=== PATIENT | male | born 1960 | race Caucasian/White ===

== ENCOUNTER 2020-08-29 09:50 | Outpatient (REF) | payer OTHER, SELFPAY ==
[2020-08-29 10:32] LABS: Hematocrit 45.2 % (42-52); Hemoglobin 14.5 g/dl (14.0-18.0); Mean Corpuscular HGB Conc 32.1 g/dl (31.0-36.0); Mean Corpuscular Hemoglobin 29.4 pg (27.0-33.0); Mean Corpuscular Volume 91.7 fL (80-98); Mean Platelet Volume 9.7 fL (9.4-12.4); Platelet Count 221 X10*3/uL (160-400); Red Blood Count 4.93 X10*6/uL (4.60-5.80); Red Cell Distribution Width 14.8 % (11.0-16.0)
[2020-08-29 10:43] LABS: Estimated Average Glucose 100 mg/dL; Hemoglobin A1c % 5.1 %
[2020-08-29 11:00] LABS: Alanine Aminotransferase 16 U/L (0-40); Albumin Level 4.3 g/dL (3.5-5.0); Alkaline Phosphatase 67 U/L (39-117); Anion Gap 13 (12-20); Aspartate Amino Transferase 14 U/L (5-37); Bilirubin Total 0.4 mg/dL (0.0-1.0); Blood Urea Nitrogen 18 mg/dL (9-16); Calcium 8.8 mg/dL (8.4-10.2); Carbon Dioxide 29 mmol/L (22-29); Chloride 106 mmol/L (96-108); Cholesterol 198 mg/dL; Estimated Glomerular Filt Rate > 60; Glucose Fasting 103 mg/dL (60-99); HDL Cholesterol 63 mg/dL; LDL Cholesterol Calculated 106 mg/dl; Potassium 4.6 mmol/L (3.3-5.1); Sodium 143 mmol/L (135-145); Total Protein 6.6 g/dL (6.5-8.0); Triglycerides 146 mg/dL
[2020-08-29 11:22] LABS: TSH reflex Free T4 2.15 uIU/mL (0.32-4.0)
[2020-08-29 11:59] LABS: Prostate Specific Antigen Scr 0.77 ng/mL (<0.05-4.0)
== END 2020-08-29 09:51 | disposition home or self-care (01) ==
LOC: HO.LAB 09:50
PROVIDERS: PCP Physician Assistant; Visit Provider Physician Assistant
DX: Z12.5 Encounter for screening for malignant neoplasm of prostate (principal); Z13.29 Encounter for screening for other suspected endocrine disorder; Z13.220 Encounter for screening for lipoid disorders; I10 Essential (primary) hypertension
CPT/HCPCS: 36415; 80053; 80061; 83036; 84153; 84443; 85027

== ENCOUNTER 2021-10-10 07:05 | Outpatient (REF) | payer BC, SELFPAY ==
--- NOTE | ~2021-10-10 | XR_ITS ---
EXAMINATION: XR KNEE, LEFT CLINICAL INFORMATION: Pain. COMPARISON: None TECHNIQUE: AP, lateral, tunnel, and sunrise views of the left knee. FINDINGS: Bony alignment and mineralization are normal. The lateral, medial and patellofemoral joint space compartment are well-maintained. No fracture or dislocation is seen. There is a moderately large left knee joint effusion. No foreign body is seen. XR/XR knee LT 3V IMPRESSION: 1. No left knee fracture, dislocation or unusual degenerative change is seen. 2. There is a moderately large left knee joint effusion.
[2021-10-10 08:35] LABS: Hematocrit 43.4 % (42.0-52.0); Hemoglobin 13.7 g/dl (14.0-18.0); Mean Corpuscular HGB Conc 31.6 g/dl (31.0-36.0); Mean Corpuscular Volume 91.8 fL (80.0-98.0); Mean Platelet Volume 9.1 fL (9.4-12.4); Platelet Count 262 X10*3/uL (160-400); Red Blood Count 4.73 X10*6/uL (4.60-5.80); Red Cell Distribution Width 13.7 % (11.0-16.0); White Blood Count 5.8 X10*3/uL (4.8-10.8)
[2021-10-10 08:37] LABS: Estimated Average Glucose 103 mg/dL; Hemoglobin A1c % 5.2 %
[2021-10-10 09:07] LABS: Alanine Aminotransferase 21 U/L (0-40); Albumin Level 4.2 g/dL (3.5-5.0); Alkaline Phosphatase 60 U/L (39-117); Anion Gap 9 (12-20); Aspartate Amino Transferase 13 U/L (5-37); Bilirubin Total 0.8 mg/dL (0.0-1.0); Blood Urea Nitrogen 24 mg/dL (9-16); Calcium 9.3 mg/dL (8.4-10.2); Carbon Dioxide 29 mmol/L (22-29); Chloride 107 mmol/L (96-108); Cholesterol 174 mg/dL; Estimated Glomerular Filt Rate > 60; Glucose Fasting 95 mg/dL (60-99); HDL Cholesterol 47 mg/dL; LDL Cholesterol Calculated 101 mg/dl; Potassium 4.4 mmol/L (3.3-5.1); Sodium 141 mmol/L (135-145); Total Protein 6.5 g/dL (6.5-8.0); Triglycerides 132 mg/dL
[2021-10-10 09:29] LABS: TSH reflex Free T4 1.44 uIU/mL (0.32-4.0)
[2021-10-12 09:17] LABS: Lyme Abs Screen <0.90 index
== END 2021-10-10 07:06 | disposition home or self-care (01) ==
LOC: HO.XRAY 07:05
PROVIDERS: PCP Physician Assistant; Visit Provider Physician Assistant
DX: Z13.29 Encounter for screening for other suspected endocrine disorder (principal); Z13.220 Encounter for screening for lipoid disorders; M25.562 Pain in left knee; T14.8XXA Other injury of unspecified body region, initial encounter; W57.XXXA Bitten or stung by nonvenomous insect and other nonvenomous arthropods, initial encounter
CPT/HCPCS: 36415; 73562; 80053; 80061; 83036; 84443; 85027; 86617; 86618

== ENCOUNTER → 2021-10-12 08:12 | Outpatient (BNVA) | payer BC, SELFPAY | PROVIDERS: PCP Physician Assistant; Visit Provider Orthopaedic Surgery | DX: S70.362A Insect bite (nonvenomous), left thigh, initial encounter (principal); W57.XXXA Bitten or stung by nonvenomous insect and other nonvenomous arthropods, initial encounter; M25.462 Effusion, left knee ==

== ENCOUNTER 2022-05-02 15:44 | Outpatient (REF) | payer OTHER, SELFPAY ==
--- NOTE | ~2022-05-02 | XR_ITS ---
EXAMINATION: XR CERVICAL SPINE CLINICAL INFORMATION: M54.2 - Cervicalgia. Additional Information: Patient states work injury 2-3 weeks ago. COMPARISON: 07/14/2007. TECHNIQUE: 4 views of the cervical spine were obtained. FINDINGS: Vertebral body heights are normal. 2 mm of retrolisthesis of C3 on C4 is new as compared to prior and likely due to the degenerative disc disease at this level. There is aiuq-tt-vpxjzyie multilevel degenerative disc disease in the cervical spine is characterized by loss of intervertebral disc height, endplate osteophytes, and uncovertebral osteophytes. No additional spondylolisthesis. Odontoid is intact. Prevertebral soft tissues are normal. Lung apices appear clear. XR/XR cervical spine 3V IMPRESSION: 1. Dqwu-da-salhrlae multilevel degenerative disc disease in the cervical spine. 2. The 2 mm of retrolisthesis of C3 on C4 is new as compared to 2008 and likely related to degenerative disc disease.
--- NOTE | ~2022-05-02 | XR_ITS ---
EXAMINATION: XR KNEE, RIGHT CLINICAL INFORMATION: M25.561 - Pain in right knee Additional Information: PT states work injury 2-3 weeks ago COMPARISON: None TECHNIQUE: AP, lateral, tunnel, and sunrise views of the right knee. FINDINGS: Mild medial and patellofemoral compartment joint space narrowing with small marginal osteophytes. Cortical irregularity is present in the central trochlea. No fractures. No joint effusion. These bony spurring is present at the quadriceps tendon insertion on the patella. Mild soft tissue swelling. XR/XR knee RT 3V IMPRESSION: Mild medial and patellofemoral compartment osteoarthritis. No acute osseous findings.
== END 2022-05-02 15:45 | disposition home or self-care (01) ==
LOC: HO.XRAY 15:44
PROVIDERS: PCP Physician Assistant; Visit Provider Physician Assistant
DX: M25.561 Pain in right knee (principal); M54.2 Cervicalgia
CPT/HCPCS: 72040; 73562

== ENCOUNTER → 2022-06-12 07:46 | Outpatient (REF) | payer BC, SELFPAY ==
--- NOTE | 2022-06-12 07:49 | CA_ITS ---
Acquisition Time: 2022-06-12 08:10:12 Total Exercise Time: 00:06:34 Test Indications: CHEST PAIN Medications: NONE Protocol: ARLEEN Max HR: 136 BPM 86% of Pred: 158 BPM Max BP: 214/052 mmHG Max Work Load: 7.8 METS Exercise stress test with exercise 6 min 34 sec of Arleen protocol, achieving 86% MPHR, 7.8 METs with mild to mod sob, no chest discomfort, with PACs and isolated PVCs, with hypertensive response to exercise, without EKG changes meeting criteria for ischemia. In recovery BP returned to baseline. Test reviewed with Dr Barragan Referred By: Jama Pemberton Overread By: ALBERTINA ALARCON
== END ==
LOC: HO.CARD 07:46
PROVIDERS: Visit Provider Physician Assistant
DX: R07.9 Chest pain, unspecified (principal)
CPT/HCPCS: 93017

== ENCOUNTER 2022-10-24 06:48 | Outpatient (REF) | payer BC, SELFPAY ==
[2022-10-24 07:53] LABS: Hematocrit 43.3 % (42.0-52.0); Hemoglobin 13.8 g/dl (14.0-18.0); Mean Corpuscular HGB Conc 31.9 g/dl (31.0-36.0); Mean Corpuscular Hemoglobin 29.5 pg (27.0-33.0); Mean Corpuscular Volume 92.5 fL (80.0-98.0); Mean Platelet Volume 9.9 fL (9.4-12.4); Platelet Count 214 X10*3/uL (160-400); Red Blood Count 4.68 X10*6/uL (4.60-5.80); Red Cell Distribution Width 14.2 % (11.0-16.0); White Blood Count 5.7 X10*3/uL (4.8-10.8)
[2022-10-24 08:28] LABS: Alanine Aminotransferase 19 U/L (0-40); Albumin Level 4.2 g/dL (3.5-5.0); Alkaline Phosphatase 68 U/L (39-117); Anion Gap 12 (12-20); Aspartate Amino Transferase 13 U/L (5-37); Bilirubin Total 0.6 mg/dL (0.0-1.0); Blood Urea Nitrogen 19 mg/dL (9-16); Calcium 9.1 mg/dL (8.4-10.2); Carbon Dioxide 29 mmol/L (22-29); Chloride 106 mmol/L (96-108); Cholesterol 169 mg/dL; Estimated Glomerular Filt Rate > 60; Glucose Fasting 90 mg/dL (60-99); HDL Cholesterol 56 mg/dL; LDL Cholesterol Calculated 97 mg/dl; Potassium 4.5 mmol/L (3.3-5.1); Sodium 142 mmol/L (135-145); Total Protein 6.4 g/dL (6.5-8.0); Triglycerides 81 mg/dL
[2022-10-24 08:49] LABS: Prostate Specific Antigen Scr 0.59 ng/mL (<0.05-4.0); TSH reflex Free T4 2.42 uIU/mL (0.32-4.0)
== END 2022-10-24 06:49 | disposition home or self-care (01) ==
LOC: HO.LAB 06:48
PROVIDERS: PCP Physician Assistant; Visit Provider Physician Assistant
DX: Z12.5 Encounter for screening for malignant neoplasm of prostate (principal); Z13.220 Encounter for screening for lipoid disorders; Z13.29 Encounter for screening for other suspected endocrine disorder; E66.9 Obesity, unspecified
CPT/HCPCS: 36415; 80053; 80061; 84153; 84443; 85027

== ENCOUNTER 2023-10-29 08:53 | Outpatient (AMB) | payer BC, SELFPAY ==
[2023-10-29 09:13] VITALS: BP 116/60; PULSE 60; O2SAT 97; BMI 33.6
--- NOTE | 2023-10-29 09:13 | A.OFFPC_ITS ---
Vital Signs 10/29/23 09:13 Height 5 ft 9 in Weight 227 lb 8 oz BMI 33.6 BP 116/60 Blood Pressure Location Lt brachial Position Sitting Pulse 60 Pulse Source Pulse Oximeter Pulse Oximetry (%) 97 Oxygen Delivery Method Room Air Intake Visit Reasons: Annual Exam Intake Note: Patient is here today for a physical. [place] Required: No Accompanied by: Self / Same As Patient Allergies No Known Allergies Allergy (Verified 10/29/23 09:31) Medication List - Last Reconciled 10/29/23 by Jama Pemberton PA-C doxycycline monohydrate 100 mg PO BID 5 days imiquimod 5% 1 appl topical 2XW 12 weeks Tobacco use date assessed: 10/29/23 Dental Screening Dental Screen Date: 10/29/23 Did you have a dental visit in the last 12 months?: Yes Did you have a dental problem in the last 6 months where you did not have access to dental care?: No Was dental information given to patient?: Patient has dentist HPI Annual Exam HPI Details ?Patient is a 63-year-old male here today for routine annual physical.? Patient has a past medical history significant for obesity, knee osteoarthritis,? lumbar disc disease. .. ? Concerns-->?continues to have concerns about certain skin lesions on his body. He is interested in seeing a log driver. Will call to make an appointment with Dermatology. .. 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 . ?obesity:? does understand his BMI is over 30? and has found it difficult to lose weight. ? Colonoscopy: Dr hernandes 2018 - hyperplastic polyp - ? Repeat colonoscopy 10 years ?vaccines:? up-to-date with tetanus vaccine,? declines COVID vaccine? and flu vaccine. ? Laboratory Tests 10/10/21 10/24/22 10/24/22 08:10 06:56 06:56 RBC 4.68 Hgb 13.8 L Creatinine 0.91 Cholesterol 169 LDL Cholesterol, C alc 101 97 PSA Screen 0.59 TSH 2.42 COUNT INCLUDES THE [facility] Medical History (Updated 10/30/23 @ 07:42 by Jama Pemberton PA-C) Tick bite Cervical spondylosis with myelopathy Surgical History History of lumbar discectomy History of appendectomy Family History Father Stomach cancer Mother No problems noted. Brother No problems noted. Sister No problems noted. Social History Housing: House Alcohol intake: current Alcohol intake frequency: a few times a month Alcohol type: beer Patient Tobacco Use Status: Never used Tobacco e-Cigarette/Vaping Use: Never Used Substance Use Type: Marijuana service: No Current occupational status: employed Current occupation: ELECTRICAL Cognitive needs: No Hearing needs: No Vision needs: Yes (Pt has not seen a eye doctor in a long time.) Questionnaire PHQ-9 Over the last 2 weeks, how often have you been bothered by any of the following problems? 1. Little interest or pleasure in doing things: not at all 2. Feeling down, depressed, or hopeless: not at all 3. Trouble falling or staying asleep, or sleeping too much: not at all 4. Feeling tired or having little energy: not at all 5. Poor appetite or overeating: not at all 6. Feeling bad about yourself - or that you are a failure or have let yourself or your family down: not at all 7. Trouble concentrating on things, such as reading the newspaper or watching television: not at all 8. Moving or speaking so slowly that other people could have noticed. Or the opposite - being so fidgety or restless that you have been moving around a lot more than usual: not at all 9. Thoughts that you would be better off or of hurting yourself in some way: not at all Total score: 0 Depression Screening Interpretation: Negative Depression Screening Done: Yes [id number] - PHQ-9 Billing: Yes Source: Developed by Drs. Link Lazar, Kennedi Ferrari, Lauro Lee and colleagues, with an educational cassandra from [employer]. Thrive Questionnaire Date Thrive assessed: 10/29/23 I am a: Patient What is your living situation today?: I have a steady place to live Within the past 12 months, did the food you bought not last and you didn't have the money to get more?: Never true Within the past 12 months, did you worry whether your food would run out before you got money to buy more?: Never true Do you have trouble paying for medicines?: No Do you have trouble getting transportation to medical appointments?: No Do you have trouble paying your heating and electricity bill?: No Do you have trouble taking care of your child, family member or friend?: No Do you have trouble with day-to-day activities such as bathing, preparing meals, shopping, managing finances, etc.?: No Are you currently unemployed and looking for a job?: No Are you interested in more education?: No Please select the resources that you would like help with: None Currently or been in a relationship where the following occur: no concerns reported THRIVE Score: 0 AUDIT C Alcohol Use Questionnaire (AUDIT-C) 1. How often do you have a drink containing alcohol?: Never 3. How often do you have six or more drinks on one occasion?: Never Total Score: 0 SIS-7 AMB Questionnaire SIS-7 Date SIS - 7 assessed: 10/29/23 Feeling nervous, anxious, or on edge: 0 = Not at all Not being able to stop or control worryin = Not at all Worrying too much about different things: 0 = Not at all Trouble relaxin = Not at all Being so restless that it is hard to sit still: 0 = Not at all Becoming easily annoyed or irritable: 0 = Not at all Feeling afraid as if something awful might happen: 0 = Not at all Total SIS-7 score (0-4 normal; 5-9 mild; 10-14 moderate; 15-21 severe): 0 Source: Developed by Drs. Link Lazar, Kennedi Ferrari, Lauro Lee and colleagues, with an educational cassandra from [employer]. SIS-7 Assessment Billing SIS-7 Assessment Tool: SIS-7 Assessment 75334 Review of Systems Const Denies body aches, Denies chills, Denies excessive sweating, Denies fatigue, Denies fever(s) and Denies headache(s) Eyes Denies blurry vision ENT Denies dysphagia, Denies vertigo, Denies dizziness, Denies headache(s), Denies hearing loss and Denies tinnitus Card Denies chest pain, Denies chest pain with activity, Denies syncope, Denies irregular heart rhythm and Denies dyspnea Resp Denies chest congestion, Denies cough, Denies hemoptysis, Denies dyspnea and Denies wheezing GI Denies abdominal pain, Denies melena, Denies hematochezia, Denies coffee ground emesis, Denies dysphagia, Denies diarrhea, Denies nausea and Denies vomiting Denies difficulty urinating, Denies dysuria, Denies urinary frequency, Denies urinary hesitancy and Denies urinary urgency Musc Denies arthralgias, Denies limited range of motion, Denies muscle cramps and Denies muscle weakness Skin/Breast Denies rash and Denies skin ulcer Neuro Denies Abnormal speech present, Denies confusion, Denies vertigo, Denies dizziness, Denies syncope, Denies headache(s), Denies memory loss and Denies seizure-like activity Psych Denies anxiety, Denies confusion, Denies depression, Denies memory loss, Denies panic attacks and Denies paranoia Endo Denies excessive sweating, Denies fatigue, Denies flushing, Denies polydipsia and Denies polyuria Aller/Immun Denies wheezing Physical exam (Primary Care) Vital Signs: Last Vital Signs Pulse 60 10/29/23 09:13 BP 116/60 10/29/23 09:13 Pulse Ox 97 10/29/23 09:13 Oxygen Delivery Method Room Air 10/29/23 09:13 BMI result Body Mass Index 33.6 BMI Assessment/Plan discussion: High BMI High, discussed plan: lifestyle, weight reduction, dietary and physical activity Tobacco/Smoking Status: Tobacco use Status Tobacco use date assessed 10/29/23 10/29/23 09:23 Patient Tobacco Use Status Never used Tobacco 10/29/23 09:18 Tobacco use type 10/10/21 07:05 e-Cigarette/Vaping Use Never Used 10/29/23 09:18 PHQ-9: PHQ-9 Score PHQ-9: Total score 0 10/29/23 09:35 Depression Screening Interpretation: Negative Thrive Assessment: Date of Thrive Assessment Date Thrive assessed 10/29/23 10/29/23 09:18 Currently or been in a relationship where the following occur: no concerns reported Const General: cooperative, comfortable, no acute distress, alert and awake; No confusion Orientation/consciousness: oriented to person, oriented to place, patient oriented x3 and No confusion HENMT Head: Yes normocephalic Ears: external ears normal and TM's normal bilaterally Face and sinus: No sinus tenderness Mouth: Normal oral and palatal mucosa present and tongue normal Teeth and gingiva: dentition normal and gingiva normal Throat: Yes posterior oropharynx normal, Yes tonsils normal and Yes uvula midline Eyes Conjunctivae: conjunctivae normal Sclerae: sclerae normal Pupils: Equal, round and reactive pupils present EOM: EOMs intact bilaterally Direct Ophthalmoscopy: No no photophobia Neck Neck: Yes no lymphadenopathy, No tender and Yes no JVD Thyroid: Thyroid normal Carotids: no bruits Chest Chest palpation & inspection: no tenderness Resp Effort & Inspection: normal respiratory effort, no audible wheezes, not labored and no stridor Auscultation: no crackles, no rales, no rhonchi and no wheezes Cardio Jugular venous distension: no JVD Rate: regular rate, not bradycardic and not tachycardic Rhythm: regular rhythm Bruits: no carotid bruits Peripheral pulses: Peripheral pulses 2+ throughout GI Inspection: Yes normal to inspection, No abdominal wall ecchymosis and No visible herniation Palpation (GI): Soft to palpation, nontender, no guarding, not rigid and No hepatosplenomegaly present Auscultation: normoactive bowel sounds General: Yes no CVA tenderness Back/Spine/Pelvis Back: no CVA tenderness and No back tenderness Cervical Spine: cervical ROM normal Thoracic/Lumbar Spine: thoracic and lumbar spine normal to inspection, straight leg raise negative bilaterally, No thoraco-lumbar ROM limited and No lumbar spinal tenderness Skin Lesions: no lesions Rashes: no rashes Wounds: no wounds Neuro General: oriented to person, oriented to place, patient oriented x3, CN's II-XI intact bilaterally and No confusion Cranial nerves: Yes Equal, round and reactive pupils present and Yes Normal accommodation reflex present Cognition (Neuro): normal cognition Speech: No Abnormal speech present Gait exam (Neuro): Normal gait present Motor exam (neuro): 5/5 motor strength present throughout Extrem Right upper extremity: full ROM; no cyanosis Left upper extremity: full ROM; no cyanosis Right lower extremity: no edema Left lower extremity: no edema Psych Appearance: grossly normal Mental Status: mental status grossly normal Affect: normal affect Attitude: cooperative Thought process: Normal thought process present Assessment and Plan Assessment & Plan (1) Annual physical exam: Code(s): Z00.00 - Encounter for general adult medical examination without abnormal findings (2) Obese: Code(s): E66.9 - Obesity, unspecified Qualifiers: Body mass index: BMI 32.0-32.9 Obesity classification: adult class 1 (BMI 30 - 34.9) Obesity type: due to excess calories Serious obesity comorbidity presence: without serious comorbidity Qualified Code(s): E66.09 - Other obesity due to excess calories; Z68.32 - Body mass index [BMI] 32.0-32.9, adult Plan: Patient does understand his BMI is over 30 and will be working on being more ph ysically active and adapting to better eating habits to reduce his weight. (3) Osteoarthritis of right knee: Code(s): M17.11 - Unilateral primary osteoarthritis, right knee Qualifiers: Osteoarthritis type: primary Qualified Code(s): M17.11 - Unilateral primary osteoarthritis, right knee Plan: Continues to have intermittent pains in his bilateral knees, most recent x-rays does show osteoarthritis. He does take Advil from time to time (4) Skin lesion of left leg: Code(s): L98.9 - Disorder of the skin and subcutaneous tissue, unspecified Plan: Patient's skin lesion over his left proximal lower extremity. He would like Dermatology evaluation Orders: Orders Prostate Specific Antigen Scr 10/29/23 Z12.5 - Encounter for screening for malignant neoplasm of prostate, Z13.1 - Encounter for screening for diabetes mellitus Comprehensive [place]. Panel Fast 10/29/23 Z13.1 - Encounter for screening for diabetes mellitus Patient Instructions: Goal: Continue working on weight loss. He plans on losing 15 lb over the next 6 months. Barriers: Adherence to healthy eating habits and physical activity Coding Level of Care Code Est Pt Prev Care 40-64y([id number]) Diagnoses Annual physical exam Z00.00 Class 1 obesity due to excess calories without serious comorbidity with body mass index (BMI) of 32.0 to 32.9 in adult E66.09; Z68.32 Body mass index: BMI 32.0-32.9 Obesity classification: adult class 1 (BMI 30 - 34.9) Obesity type: due to excess calories Serious obesity comorbidity presence: without serious comorbidity Primary osteoarthritis of right knee M17.11 Osteoarthritis type: primary Skin lesion of left leg L98.9 Additional Codes SIS-7 Assessment Billing - SIS-7 Assessment Tool: SIS-7 Assessment [id number] ([id number])
== END 2023-10-29 10:02 | disposition home or self-care (01) ==
PROVIDERS: Visit Provider Physician Assistant
DX: Z00.00 Encounter for general adult medical examination without abnormal findings (principal); E66.09 Other obesity due to excess calories; Z68.32 Body mass index [BMI] 32.0-32.9, adult; M17.11 Unilateral primary osteoarthritis, right knee; L98.9 Disorder of the skin and subcutaneous tissue, unspecified
CPT/HCPCS: 99396

== ENCOUNTER 2024-10-20 10:06 | Outpatient (REF) | payer BC, SELFPAY ==
[2024-10-20 11:17] LABS: Alanine Aminotransferase 18 U/L (0-40); Albumin Level 4.1 g/dL (3.5-5.0); Alkaline Phosphatase 67 U/L (39-117); Anion Gap 10 (12-20); Aspartate Amino Transferase 17 U/L (5-37); Bilirubin Total 0.7 mg/dL (0.0-1.0); Blood Urea Nitrogen 17 mg/dL (9-16); Calcium 8.9 mg/dL (8.4-10.2); Carbon Dioxide 30 mmol/L (22-29); Chloride 106 mmol/L (96-108); Estimated Glomerular Filt Rate > 60; Glucose Fasting 87 mg/dL (60-99); Potassium 4.3 mmol/L (3.3-5.1); Sodium 142 mmol/L (135-145); Total Protein 6.6 g/dL (6.5-8.0)
[2024-10-20 12:00] LABS: Prostate Specific Antigen Scr 0.81 ng/mL (<0.05-4.0)
== END 2024-10-20 10:07 | disposition home or self-care (01) ==
LOC: HO.LAB 10:06
PROVIDERS: PCP Physician Assistant; Visit Provider Physician Assistant
DX: Z12.5 Encounter for screening for malignant neoplasm of prostate (principal); Z13.1 Encounter for screening for diabetes mellitus
CPT/HCPCS: 36415; 80053; 84153

== ENCOUNTER 2024-10-29 10:11 | Outpatient (AMB) | payer BC, SELFPAY ==
--- NOTE | 2024-10-29 10:48 | A.OFFPC_ITS ---
Vital Signs 10/29/24 11:04 Height 5 ft 9 in Weight 225 lb 8 oz BMI 33.3 BP 130/70 Blood Pressure Location Lt brachial Position Sitting Pulse 74 Pulse Source Pulse Oximeter Temp 97.1 F Temp Source Temporal Artery Scan Pulse Oximetry (%) 96 Oxygen Delivery Method Room Air Intake Visit Reasons: annual exam Dairy Associate Required: No Accompanied by: Self / Same As Patient Allergies No Known Allergies Allergy (Verified 10/29/24 11:11) Medication List - Last Reconciled 10/29/24 by Jama Pemberton PA-C imiquimod 5% 1 appl topical 2XW 12 weeks Tobacco use date assessed: 10/29/24 Fall risk assessment: 1 Fall in past year Last assessed Fall Risk: 10/29/24 Dental Screening Dental Screen Date: 10/29/24 Did you have a dental visit in the last 12 months?: Yes Did you have a dental problem in the last 6 months where you did not have access to dental care?: No Was dental information given to patient?: Patient has dentist HPI annual exam HPI Details ?Patient is a 64 year-old male here today for routine annual physical.? Patient has a past medical history significant for obesity, knee o steoarthritis,? lumbar disc disease. .. ? Concerns--> having right shoulder and bicep pain over the last 3 months , may have picked up a heavy object at the time and feels he may have injured his rig ht shoulder and biceps. Of note does have cervical disc disease to which causes bilateral shoulder and trapezius pain. He is applying for a crossbow license as he does not have the upper body strength secondary to his cervical spine disease. He also reports he continues to have bilateral lower extremity cramping and knee pain, he is concerned about having Lyme as he has found ticks on him in the past. .. 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 . ?obesity:? does understand his BMI is over 30? and has found it difficult to lose weight. ? Colonoscopy: Dr hernandes 2018 - hyperplastic polyp - ? Repeat colonoscopy 10 years ?vaccines:? up-to-date with tetanus vaccine,? declines COVID vaccine? and flu vaccine. ?concsidering shingrex Laboratory Tests 10/10/21 10/24/22 10/24/22 08:10 06:56 06:56 RBC 4.68 Hgb 13.8 L Creatinine 0.91 Cholesterol 169 LDL Cholesterol, C alc 101 97 PSA Screen 0.59 TSH 2.42 [facility] Medical History Tick bite Cervical spondylosis with myelopathy Surgical History History of lumbar discectomy History of appendectomy Family History (Updated 10/29/24 @ 11:28 by Jama Pemberton PA-C) Father Stomach cancer Mother No problems noted. Brother Heart attack Sister No problems noted. Social History Housing: House Alcohol intake: current Alcohol intake frequency: a few times a month Alcohol type: beer Patient Tobacco Use Status: Never used Tobacco e-Cigarette/Vaping Use: Never Used Substance Use Type: Marijuana service: No Current occupational status: employed Current occupation: ELECTRICAL Cognitive needs: No Hearing needs: No Vision needs: Yes (Pt has not seen a eye doctor in a long time.) Questionnaire PHQ-9 Over the last 2 weeks, how often have you been bothered by any of the following problems? 1. Little interest or pleasure in doing things: not at all 2. Feeling down, depressed, or hopeless: several days 3. Trouble falling or staying asleep, or sleeping too much: several days 4. Feeling tired or having little energy: several days 5. Poor appetite or overeating: not at all 6. Feeling bad about yourself - or that you are a failure or have let yourself or your family down: several days 7. Trouble concentrating on things, such as reading the newspaper or watching television: not at all 8. Moving or speaking so slowly that other people could have noticed. Or the opposite - being so fidgety or restless that you have been moving around a lot more than usual: not at all 9. Thoughts that you would be better off or of hurting yourself in some way: not at all Total score: 4 Depression Screening Interpretation: Positive Depression Screening Follow-up: Existing condition Depression Screening Done: Yes 93477 - PHQ-9 Billing: Yes Source: Developed by Drs. Link Lazar, Kennedi Ferrari, Lauro Lee and colleagues, with an educational cassandra from [employer]. Thrive Questionnaire Date Thrive assessed: 10/29/24 I am a: Patient What is your living situation today?: I have a steady place to live Within the past 12 months, did the food you bought not last and you didn't have the money to get more?: Never true Within the past 12 months, did you worry whether your food would run out before you got money to buy more?: Never true Do you have trouble paying for medicines?: Yes Do you have trouble getting transportation to medical appointments?: No Do you have trouble paying your heating and electricity bill?: Yes Do you have trouble taking care of your child, family member or friend?: No Do you have trouble with day-to-day activities such as bathing, preparing meals, shopping, managing finances, etc.?: No Are you currently unemployed and looking for a job?: No Are you interested in more education?: Yes Please select the resources that you would like help with: Paying for medicine, Utilities and None Currently or been in a relationship where the following occur: No concerns reported THRIVE Score: 1 AUDIT C Alcohol Use Questionnaire (AUDIT-C) 1. How often do you have a drink containing alcohol?: 2-3 times a week 2. How many drinks containing alcohol do you have on a typical day when you are drinking?: 1 or 2 3. How often do you have six or more drinks on one occasion?: Monthly Total Score: 5 SIS-7 AMB Questionnaire SIS-7 Date SIS - 7 assessed: 10/29/24 Feeling nervous, anxious, or on edge: 1 = Several days Not being able to stop or control worryin = Several days Worrying too much about different things: 1 = Several days Trouble relaxin = More than half the days Being so restless that it is hard to sit still: 0 = Not at all Becoming easily annoyed or irritable: 1 = Several days Feeling afraid as if something awful might happen: 1 = Several days Total SIS-7 score (0-4 normal; 5-9 mild; 10-14 moderate; 15-21 severe): 7 Source: Developed by Kennedi Washburn, Lauro Lee and colleagues, with an educational cassandra from [employer]. SIS-7 Assessment Billing SIS-7 Assessment Tool: SIS-7 Assessment 37556 Review of Systems Const Denies body aches, Denies chills, Denies excessive sweating, Denies fatigue, De nies fever(s) and Denies headache(s) Eyes Denies blurry vision ENT Denies dysphagia, Denies vertigo, Denies dizziness, Denies headache(s), Denies hearing loss and Denies tinnitus Card Denies chest pain, Denies chest pain with activity, Denies syncope, Denies irregular heart rhythm and Denies dyspnea Resp Denies chest congestion, Denies cough, Denies hemoptysis, Denies dyspnea and Denies wheezing GI Denies abdominal pain, Denies melena, Denies hematochezia, Denies coffee ground emesis, Denies dysphagia, Denies diarrhea, Denies nausea and Denies vomiting Denies difficulty urinating, Denies dysuria, Denies urinary frequency, Denies urinary hesitancy and Denies urinary urgency Musc Denies arthralgias, Denies limited range of motion, Denies muscle cramps and Denies muscle weakness Skin/Breast Denies rash and Denies skin ulcer Neuro Denies Abnormal speech present, Denies confusion, Denies vertigo, Denies dizziness, Denies syncope, Denies headache(s), Denies memory loss and Denies seizure-like activity Psych Denies anxiety, Denies confusion, Denies depression, Denies memory loss, Denies panic attacks and Denies paranoia Endo Denies excessive sweating, Denies fatigue, Denies flushing, Denies polydipsia and Denies polyuria Aller/Immun Denies wheezing Physical exam (Primary Care) Vital Signs: Last Vital Signs Temp 97.1 F 10/29/24 11:04 Pulse 74 10/29/24 11:04 BP 130/70 10/29/24 11:04 Pulse Ox 96 10/29/24 11:04 Oxygen Delivery Method Room Air 10/29/24 11:04 BMI result Body Mass Index 33.3 Tobacco/Smoking Status: Tobacco use Status Tobacco use date assessed 10/29/24 10/29/24 10:54 Patient Tobacco Use Status Never used Tobacco 10/29/24 10:49 Tobacco use type 10/10/21 07:05 e-Cigarette/Vaping Use Never Used 10/29/24 10:49 PHQ-9: PHQ-9 Score PHQ-9: Total score 4 10/29/24 11:31 Depression Screening Interpretation: Positive Depression Screening Follow-up: Existing condition Thrive Assessment: Date of Thrive Assessment Date Thrive assessed 10/29/24 10/29/24 10:49 Currently or been in a relationship where the following occur: No concerns reported Const General: cooperative, comfortable, no acute distress, alert and awake; No confusion Orientation/consciousness: oriented to person, oriented to place, patient oriented x3 and No confusion HENMT Head: Yes normocephalic Ears: external ears normal and TM's normal bilaterally Face and sinus: No sinus tenderness Mouth: Normal oral and palatal mucosa present and tongue normal Teeth and gingiva: dentition normal and gingiva normal Throat: Yes posterior oropharynx normal, Yes tonsils normal and Yes uvula midline Eyes Conjunctivae: conjunctivae normal Sclerae: sclerae normal Pupils: Equal, round and reactive pupils present EOM: EOMs intact bilaterally Direct Ophthalmoscopy: No no photophobia Neck Neck: Yes no lymphadenopathy, No tender and Yes no JVD Thyroid: Thyroid normal Carotids: no bruits Chest Chest palpation & inspection: no tenderness Resp Effort & Inspection: normal respiratory effort, no audible wheezes, not labored and no stridor Auscultation: no crackles, no rales, no rhonchi and no wheezes Cardio Jugular venous distension: no JVD Rate: regular rate, not bradycardic and not tachycardic Rhythm: regular rhythm Bruits: no carotid bruits Peripheral pulses: Peripheral pulses 2+ throughout GI Inspection: Yes normal to inspection, No abdominal wall ecchymosis and No visible herniation Palpation (GI): Soft to palpation, nontender, no guarding, not rigid and No hepatosplenomegaly present Auscultation: normoactive bowel sounds General: Yes no CVA tenderness Back/Spine/Pelvis Back: no CVA tenderness and No back tenderness Cervical Spine: cervical ROM normal Thoracic/Lumbar Spine: thoracic and lumbar spine normal to inspection, straight leg raise negative bilaterally, No thoraco-lumbar ROM limited and No lumbar spinal tenderness Skin Lesions: no lesions Rashes: no rashes Wounds: no wounds Neuro General: oriented to person, oriented to place, patient oriented x3, CN's II-XI intact bilaterally and No confusion Cranial nerves: Yes Equal, round and reactive pupils present and Yes Normal accommodation reflex present Cognition (Neuro): normal cognition Speech: No Abnormal speech present Gait exam (Neuro): Normal gait present Motor exam (neuro): 5/5 motor strength present throughout Extrem Other: RIGHT ShOUlDeR: DECREASED RANGE OF MOTION IN THE RIGHT SHOULDER, NOTED TENDERNESS TO PALPATION OVER THE TRAPEZIUS AND THE ANTERIOR ASPECT OF THE BICEP. Right upper extremity: ROM limited and no cyanosis Left upper extremity: full ROM; no cyanosis Right lower extremity: no edema Left lower extremity: no edema Psych Appearance: grossly normal Mental Status: mental status grossly normal Affect: normal affect Attitude: cooperative Thought process: Normal thought process present Coding Level of Care Code Est Pt Prev Care 40-64y(19984) Diagnoses Annual physical exam Z00.00 Osteoarthritis of right shoulder due to rotator cuff injury M19.111; S46.001S Chronic fatigue R53.82 Polyarthralgia M25.50 Additional Codes SIS-7 Assessment Billing - SIS-7 Assessment Tool: SIS-7 Assessment 32142 ([id number]) PHQ-9 - 64901 - PHQ-9 Billing: Yes ([id number]) Assessment & Plan Assessment & Plan (1) Annual physical exam: Code(s): Z00.00 - Encounter for general adult medical examination without abnormal find ings Category: Medical Plan: As per HPI (2) Osteoarthritis of right shoulder due to rotator cuff injury: Code(s): M19.111 - Post-traumatic osteoarthritis, right shoulder; S46.001S - Unspecified injury of muscle(s) and tendon(s) of the rotator cuff of right shoulder, sequela Category: Medical Plan: as per HPI patient having chronic right shoulder pain and decreased range of motion. He does report a traumatic injury during lifting a large optic discs at work and may have injured his right shoulder. Will send for MRI of right shoulder to evaluate for rotator cuff tear. (3) Chronic fatigue: Code(s): R53.82 - Chronic fatigue, unspecified Category: Medical Plan: Reports chronic fatigue and polyarthralgias in his interested in getting Lyme and tick-borne disease testing. (4) Polyarthralgia: Code(s): M25.50 - Pain in unspecified joint Category: Medical Plan: as above Orders: Orders MR shoulder RT wo con Today M19.111 - Post-traumatic osteoarthritis, right shoulder, S46.001S - Unspecified injury of muscle(s) and tendon(s) of the rotator cuff of right shoulder, sequela KATARINA Reflex Titer and Pattern Today M25.50 - Pain in unspecified joint Rheumatoid Factor Today M25.50 - Pain in unspecified joint Tick-borne Disease Molecular Today R53.82 - Chronic fatigue, unspecified Lyme IgG/IgM w/reflex to WB Today R53.82 - Chronic fatigue, unspecified Cyclic Citrullinated Peptide Today M25.50 - Pain in unspecified joint Referrals Dermatology Referral L98.9 - Disorder of the skin and subcutaneous tissue, unspecified
[2024-10-29 11:04] VITALS: BP 130/70; PULSE 74; TEMP 36.2; O2SAT 96; BMI 33.3
== END 2024-10-29 11:42 | disposition home or self-care (01) ==
LOC: HO.HMCH 10:12
PROVIDERS: PCP Physician Assistant; Visit Provider Physician Assistant
DX: Z00.00 Encounter for general adult medical examination without abnormal findings (principal); M19.111 Post-traumatic osteoarthritis, right shoulder; S46.001S Unspecified injury of muscle(s) and tendon(s) of the rotator cuff of right shoulder, sequela; R53.82 Chronic fatigue, unspecified; M25.50 Pain in unspecified joint

== ENCOUNTER 2024-10-29 10:11 | Outpatient (REF) | payer BC, SELFPAY ==
[2024-10-29 13:53] LABS: Rheumatoid Factor < 13.0 IU/mL (<15.0)
[2024-10-30 06:48] LABS: Lyme Abs Screen <0.90 index
[2024-10-30 12:18] LABS: Cyclic Citrullinated Peptide <16 UNITS
[2024-10-30 20:47] LABS: A. Phagocytphilium DNA,RT-PCR NOT DETECTED (NOT DETECTED); Babesia Microti DNA, RT-PCR NOT DETECTED (NOT DETECTED); Borrelia Miyamotoi,DNA RT-PCR NOT DETECTED (NOT DETECTED); E.Chaffeensis DNA RT-PCR NOT DETECTED (NOT DETECTED); Lyme(Borrelia ssp)DNA RT-PCR NOT DETECTED (NOT DETECTED)
[2024-11-02 11:14] LABS: Anti Nuclear Antibody Screen NEGATIVE (NEGATIVE)
== END 2024-10-29 10:12 | disposition home or self-care (01) ==
LOC: HO.LAB 10:11
PROVIDERS: PCP Physician Assistant; Visit Provider Physician Assistant
DX: Z00.00 Encounter for general adult medical examination without abnormal findings (principal); M19.111 Post-traumatic osteoarthritis, right shoulder; S46.001S Unspecified injury of muscle(s) and tendon(s) of the rotator cuff of right shoulder, sequela; R53.82 Chronic fatigue, unspecified; M25.50 Pain in unspecified joint; L98.9 Disorder of the skin and subcutaneous tissue, unspecified; M17.0 Bilateral primary osteoarthritis of knee; E66.9 Obesity, unspecified; Z68.33 Body mass index [BMI] 33.0-33.9, adult
CPT/HCPCS: 36415; 86038; 86200; 86431; 86617; 86618; 87468; 87469; 87478; 87484; 87798; 96127

== ENCOUNTER → 2024-11-23 16:19 | Outpatient (BNV) | payer BC, SELFPAY | PROVIDERS: PCP Physician Assistant; Visit Provider Radiology Diagnostic Radiology | DX: M19.012 Primary osteoarthritis, left shoulder (principal); M25.711 Osteophyte, right shoulder | CPT/HCPCS: 73221 ==

== ENCOUNTER 2024-11-23 16:25 | Outpatient (REF) | payer BC, SELFPAY ==
--- NOTE | ~2024-11-23 | MR_ITS ---
EXAMINATION: MR SHOULDER WITHOUT CONTRAST, RIGHT CLINICAL INFORMATION: Post traumatic osteoarthritis COMPARISON: None available. TECHNIQUE: MRI of the shoulder without contrast was performed on a high-field scanner. FINDINGS: Rotator Cuff: Minimal increased signal is present in the distal supraspinatus tendon at the greater tuberosity. Rotator cuff is intact. Labrum: Labrum is intact. Long biceps tendon: The long biceps tendon is intact and not displaced from the groove. Acromioclavicular joint: Moderate degenerative changes are present with osteophytes. Acromial morphology is curved, type II. There is a small subacromial spur. There is trace fluid in the subacromial subdeltoid bursa. Axillary pouch: Axillary pouch is thickened with increased signal. There is no joint effusion. Articular cartilage: Full thickness cartilage loss is present in the lower glenoid. Shallow partial thickness cartilage loss is present in the central humeral head. The articular cartilage loss is present in the inferomedial humeral head. Bones/Marrow: There is reactive marrow signal and marginal osteophytes involving inferior laterally. Small marginal osteophyte is present on the inferomedial humeral head. Soft tissues: There is mild fatty streaking from deconditioning. MR/MR shoulder RT wo con IMPRESSION: Possible adhesive capsulitis: Axillary pouch is thickened with increased intrinsic signal which can be present in asymptomatic individuals but is also present in those with adhesive capsulitis. Moderate degenerative changes in the inferior glenohumeral joint with grade 3 chondromalacia involving humeral head and grade 4 involving glenoid. Moderate AC joint arthropathy and small subacromial spur Electronically signed by: Adriano Wilcox MD 11/23/2024 05:20 PM EDT
== END 2024-11-23 16:26 | disposition home or self-care (01) ==
LOC: HO.MRI 16:25
PROVIDERS: PCP Physician Assistant; Visit Provider Physician Assistant
DX: M19.111 Post-traumatic osteoarthritis, right shoulder (principal); S46.001S Unspecified injury of muscle(s) and tendon(s) of the rotator cuff of right shoulder, sequela; M19.011 Primary osteoarthritis, right shoulder
CPT/HCPCS: 73221